=== PATIENT | male | born 1940 | race Caucasian/White ===

== ENCOUNTER 2016-07-28 18:02 | Emergency (ER) | payer OTHER ==
--- NOTE | 2016-07-28 22:51 | ED NURSING NOTES ---
Clinical Report - Nurses [facility] [address] [place] [place] [address] 07/28/2016 18:06 Patient: JORGE SAMUELS TRIAGE Triage time 20:57 Jul 28 2016. --20:58 Clementina Amaral R.N. 20:57 07/28/16. BP: 163/95. HR: 104. RR: 28. O2 saturation: 96%. Temp: 98.5 F. Pain level now: 11/16. --20:58 Clementina Amaral R.N. Acuity: LEVEL 3. Chief Complaint: (flu symptoms for 1 week). 21:03 07/28/16. --21:03 Clementina Amaral R.N. 21:03 07/28/16. HR: 68. RR: 24. --21:03 Clementina Amaral R.N. Weight: 115.6 kg stated. Height/Length: 69 inches Per Patient. BMI: 37.7. --20:19 Clementina Amaral R.N. Medications HCTZ. --20:59 Clementina Amaral R.N. Atenolol Oral. --21:00 Clementina Amaral R.N. Simvastatin Oral. --21:00 Clementina Amaral R.N. Allopurinol Oral. --21:00 Clementina Amaral R.N. Aspirin Oral. --21:00 Clementina Amaral R.N. Lansoprazole Oral. --21:00 Clementina Amaral R.N. Combivent. --21:00 Clementina Amaral R.N. Combivent Respimat Inhalation. Respa-BR Oral. --21:00 Clementina Amaral R.N. Advair Diskus Inhalation. --21:01 Clementina Amaral R.N. Vitamin D3. --21:01 Clementina Amaral R.N. Magnesium. --21:01 Clementina Amaral R.N. Meloxicam Oral. --21:01 Clementina Amaral R.N. Allergies No Known Drug Allergy. --20:59 Clementina Amaral R.N. Medication/allergy information source: the patient. --21:03 Clementina Amaral R.N. History Onset. (7 days). He has had a cough productive of moderate amounts of yellow sputum. He has had difficulty breathing. No fever, weakness or skin rash. Denies muscle aches. Treatment PITCH GATHERER: None. PAST MEDICAL HX: Immunizations: has received tetanus within 5 years; seasonal influenza. SOCIAL HX: Never smoker. No alcohol use or drug use. No infectious disease exposure. ABUSE ASSESSMENT: No report of abuse. SELF HARM ASSESSMENT: A self harm assessment was performed. The patient answered "no" to the question "Have you recently felt down, depressed, or hopeless?", "Have you noticed less interest or pleasure in doing things?", "Do you have thoughts of harming or killing yourself?", "Are you here because you tried to hurt yourself?", "Have you ever tried to hurt yourself before today?", "Have you recently had thoughts about harming or killing others?" and "Do you have any dangerous items in your possession?". FALL RISK ASSESSMENT: Fall risk assessment completed. No fall risk identified. NUTRITIONAL RISK ASSESSMENT: The nutritional risk assessment revealed no deficiencies. FUNCTIONAL ASSESSMENT: Functional assessment: no impairments noted. LEARNING NEEDS ASSESSMENT: The learning needs assessment revealed no barriers. SKIN INTEGRITY ASSESSMENT: Skin integrity risk assessment completed. No skin integrity risk identified. --21:03 Clementina Amaral R.N. PROBLEMS: Hypertension. Hypercholesterolemia. Heart Disease. COPD - Chronic Obstructive Pulmonary Disease. --21:02 Clementina Amaral R.N. ADDITIONAL SURGERIES: Esophageal Dilatation. PARTIAL THYROIDECTOMY. --21:02 Clementina Amaral R.N. Interventions ID band on patient. --21:03 Clementina Amaral R.N. PHYSICAL ASSESSMENT 21:21 07/28/16. Ambulatory to room. GENERAL / NEURO / PSYCH: Alert. Oriented X 4. HEENT: Pupils equal, round and reactive to light. No facial asymmetry noted. No facial weakness. No pharyngeal erythema. No sinus tenderness present. Mucous membranes are pink. RESPIRATORY: Mild respiratory distress. The patient can speak in full sentences. Cough productive of moderate amounts of yellow sputum. Decreased breath sounds. Expiratory wheezes present (scattered). Rhonchi present in the left lung base. CVS: Capillary refill less than 2 seconds. Pulses within normal limits. GI / : Abdomen soft. SKIN: Skin intact. Skin is warm and dry. Normal skin turgor. --21:21 Clementina Amaral R.N. NURSING PROGRESS NOTES 21:00 07/28/16. The initial plan of care for this patient includes an assessment with efforts to address the presence of pain; impairment of the cardiovascular and respiratory system. This plan of care was discussed with the patient. Pulse oximeter and NIBP monitor placed on patient; manager cardiac cath- Lead II; monitor alarms on. Patient gowned. Reassurance given to the patient. Patient ID band checked for patient name and birthdate: patient confirmed. Flu swab obtained by RN via nasal swab. Labeled in the presence of the patient. Patient identifiers checked. Call light placed in reach. Side rails up x 1. Bed placed in lowest position. Brakes of bed on. Patient ready for evaluation. --21:20 Clementina Amaral R.N. 21:10 07/28/2016 Site #1 started via IV in the right wrist with an 18g angiocath, with aseptic technique and good blood return; one attempt. Blood drawn: rainbow set. Labeled in the presence of the patient and sent to the lab. Saline lock flushed with 10 mL saline. --21:20 Clementina Amaral R.N. 21:58 07/28/16. BP: 158/96. HR: 120. RR: 18. O2 saturation: 94%. Pain level now 08/19. --21:58 Clementina Amaral R.N. 22:06 07/28/16. BP: 158/96. HR: 122. RR: 22. O2 saturation: 93%. Temp: 99.5 F. --22:07 Clementina Amaral R.N. Cardiac rhythm: atrial fibrillation. equipment monitor phototypesetting placed on patient; manager cardiac cath- Lead II; monitor alarms on. ( EKG ordered.). --22:07 Clementina Amaral R.N. 22:19. EKG was performed by a tech and shown to the ED physician. --22:23 McQuoid, Natty, ER Tech1 22:48 07/28/2016 Diltiazem IVP 20 mg given over 2 minute(s) via site #1. Allergies verified and confirmed 5 rights. IV patency established. IV site checked: no pain, redness, or swelling. IV flushed thoroughly pre- and post-medication administration. IVP given by RN. --22:50 Clementina Amaral R.N. 22:52 07/28/16. CVS: Denies chest pain. ( PATIENT WITH NSTEMI, LOOKING FOR HOSPITAL WITH INTERVENTIONAL CARDIOLOGY. PT AWARE THAT HE WILL BE TRANSFERRED). --22:52 Clementina Amaral R.N. 22:52 07/28/16. BP: 142/70. HR: 118. RR: 18. O2 saturation: 94%. Pain level now 0/10. --22:52 Clementina Amaral R.N. 22:53 07/28/16. Oxygen administered by nasal cannula. --22:53 Clementina Amaral R.N. 23:28 07/28/2016 Metoprolol (Metoprolol Tartrate) IVP 5 mg given over 1 minute(s) via site #1. IV patency established. IV site checked: no pain, redness, or swelling. IV flushed thoroughly pre- and post-medication administration. IVP given by RN. --23:35 Clementina Amaral R.N. 23:28 07/28/2016 NITROGLYCERIN PASTE Topical Paste 1 inch. Applied to the right upper arm. Allergies verified and confirmed 5 rights. --23:36 Clementina Amaral R.N. 23:29 07/28/2016 Aspirin PO Tablets 324 mg given. Allergies verified and confirmed 5 rights. --23:36 Clementina Amaral R.N. 23:32 07/28/2016 Zofran (Ondansetron HCl) IVP 4 mg given over 1 minute(s) via site #1. Allergies verified and confirmed 5 rights. IV patency established. IV site checked: no pain, redness, or swelling. IV flushed thoroughly pre- and post-medication administration. IVP given by RN. --23:37 Clementina Amaral R.N. 23:48 07/28/2016 Heparin IVP 5000 unit given over 1 minute(s) via site #1. Allergies verified and confirmed 5 rights. IV patency established. IV site checked: no pain, redness, or swelling. IV flushed thoroughly pre- and post-medication administration. IVP given by RN. --23:55 Clementina Amaral R.N. 23:49 07/28/2016 Started 10692 unit of Heparin ACS Protocol (Heparin Sodium Flush) Drip IV in bag #1 500 mL; at 10 unit/kg/hr over 8 hour(s) via site #1 via IV pump. Allergies verified and confirmed 5 rights. IV patency established. IV site checked: no pain, redness, or swelling. IV flushed thoroughly pre- and post-medication administration. --23:57 Clementina Amaral R.N. 23:50 07/28/2016 Heparin ACS Protocol Drip IV Co-signature: dosage, concentration and rate verified. --00:00 Yonathan Thomason R.N. 23:54 07/28/2016 Site #2 started via IV in the right wrist with an 20g angiocath, with aseptic technique and good blood return; one attempt. Saline lock flushed with 10 mL saline (green top for repeat troponin). --23:58 Clementina Amaral R.N. Critical value relayed to ED by LAB. Troponin: 6.38. Critical value. Verified lab result and patient ID. ED physician notifed of critical value. --00:18 Luci Licea R.N. 00:19 07/29/16. Cardiac rhythm: atrial fibrillation. The patient reports no complaints and he is resting quietly. --00:19 Clementina Amaral R.N. 00:19 07/29/16. BP: 151/71. HR: 122. RR: 18. O2 saturation: 94%. Pain level now 0/10. --00:19 Clementina Amaral R.N. 00:50 07/29/2016 Started bag #1 1000 mL IV Fluids IV NS (Saline); bolus of 500 mL over 30 minute(s) then at 125 mL/hr over 4 hour(s) via site #2 via IV pump. Allergies verified and confirmed 5 rights. IV patency established. IV site checked: no pain, redness, or swelling. IV flushed thoroughly pre- and post-medication administration. --00:51 Clementina Amaral R.N. 00:52 07/29/16. Cardiac rhythm: atrial fibrillation. GENERAL / NEURO / PSYCH: Denies headache. RESPIRATORY: Denies difficulty breathing. CVS: Denies chest pain. GI / : Denies nausea. SKIN: Skin is warm and dry. --00:52 Clementina Amaral R.N. 00:52 07/29/16. BP: 138/89. HR: 123. RR: 22. O2 saturation: 93%. Pain level now 0/10. --00:52 Clementina Amaral R.N. 01:28 07/29/16. BP: 138/72. HR: 118. RR: 18. O2 saturation: 96%. Pain level now 0/10. --01:29 James Figueroa R.N. ( pt placed in chair for comfort). --01:29 James Figueroa R.N. ( Dose confirmed with MD ANGELICA wants heparin running at 1100 units per hour). --02:07 James Figueroa R.N. late entry - 00:35 Potential bed placement found at [facility]. --02:18 Natty Brady, ER Tech1 02:19 Awaiting room assignment. --02:19 McQuoid, Natty, ER Tech1 late entry - 22:40 Attempting to find bed placement for patient. No beds available at; [facility], [facility], [facility], [facility], [facility], [facility], [facility], [facility] --02:18 McQuoid, Natty, ER Tech1 23:04 Accepting physician at [facility]; Dr Brown. Pending room assignment. --02:19 McQuoid, Natty, ER Tech1 ( Family is becoming upset that pt is still in [facility] informed of plan of care. Pt is alert and oriented with no change in baseline from first assessment by this RN). --02:42 James Figueroa R.N. 02:39 07/29/16. BP: 124/62. HR: 67. RR: 18. O2 saturation: 96%. Pain level now 0/10. --02:42 James Figueroa R.N. ( Pt has converted to sinus rhythm). --02:43 James Figueroa R.N. DISPOSITION / DISCHARGE <<STRICKEN ENTRY-- Departure time: 0150. Condition at departure: unchanged. No learning barriers present. Discharge instructions provided and reviewed with the patient. Reviewed medication(s) information. Patient verbalized understanding. Written instructions provided in Kinyarwanda. The patient was discharged by the physician. He was discharged home and accompanied by survey instrument operator. ( Pt ambulated on discharge steady on her feet pt verbalized understanding of discharge instructions and follow up care.). --01:56 James Figueroa R.N. --END STRIKE>> Charted On Wrong Patient --02:03 James Figueroa R.N. <<STRICKEN ENTRY-- 01:54 07/29/16. BP: 143/85. HR: 83. RR: 20. O2 saturation: 97%. Temp: 98.8 F. Pain level now 0/10. --01:56 James Figueroa R.N. --END STRIKE>> Charted on wrong patient. --02:01 James Figueroa R.N. Report was given via a phone call. Report included patient's care, treatment, medications, reviewed medication reconcilliation, and condition (including any recent changes or anticipated changes). All questions were answered. Report was acknowledged. (report given to MANAV knapp). --03:31 James Figueroa R.N. Condition at departure: stable. Transferred to [facility]. ( Pt to Room 273, Pt belongings with pt, clothing). FALL RISK ASSESSMENT: Fall risk assessment completed. No fall risk identified. --03:32 James Figueroa R.N. 03:33 07/29/16. HR: 66. RR: 18. O2 saturation: 95%. --03:34 James Figueroa R.N. 03:53 07/29/16. BP: 126/64. HR: 71. O2 saturation: 94%. --03:53 James Figueroa R.N. Departure time: 0410. ( Pt out in stretcher, pt verbalized understanding of care transport verbalized understanding of report.). --04:16 James Figueroa R.N. 04:15 07/29/16. BP: 131/67. HR: 71. RR: 18. O2 saturation: 96%. Temp: 98.2 F. Pain level now 09/16. --04:16 James Figueroa R.N. Locked/Released at 07/29/2016 5:57 by James Figueroa R.N.
--- NOTE | 2016-07-28 22:51 | ED CLINICAL REPORT ---
Clinical Report - Physicians/Mid Levels [facility] [address] [place] [address] 07/28/2016 18:06 Patient: JORGE SAMUELS Time Seen: 20:59. Arrived- By private vehicle. Historian- patient. HISTORY OF PRESENT ILLNESS Chief Complaint: COUGH. This started about 1 week ago and is still present. It was gradual in onset and has been constant and waxing/waning. The illness is described as moderate. The patient has had a cough, mild difficulty breathing, fever and muscle aches. He has had moderate amounts of thick, yellow, green, brown sputum. No chest discomfort or pain. Additional history - The patient has had contact with a sick spouse with confirmed type A "flu". They have had similar symptoms. Similar symptoms previously: None. REVIEW OF SYSTEMS The patient has had mild joint pain (his who fell several days ago. He helped her to get upand since that time has had a mild ache in the right shoulder), involving the right shoulder. All systems otherwise negative, except as recorded above. PAST HISTORY Problems: Heart Disease. Hypertension. Hypercholesterolemia. COPD - Chronic Obstructive Pulmonary Disease. Additional Surgeries: Esophageal Dilatation. PARTIAL THYROIDECTOMY. Medications: Meloxicam Oral. Magnesium. Vitamin D3. Advair Diskus Inhalation. Combivent Respimat Inhalation. Respa-BR Oral. Combivent. Lansoprazole Oral. Aspirin Oral. Allopurinol Oral. Simvastatin Oral. Atenolol Oral. HCTZ. Allergies: No Known Drug Allergy. SOCIAL HISTORY Former smoker, end date 1967. FAMILY HISTORY Denies family medical history. ADDITIONAL NOTES The nursing notes have been reviewed. PHYSICAL EXAM Vital Signs: 07/28/2016 20:57 BP: 163/95. HR: 104. RR: 28. O2 saturation: 96%. Temp: 98.5 F. Pain level now: 5/10. Have been reviewed. Appearance: Alert. Eyes: Pupils equal, round and reactive to light. ENT: Ears normal. Nose normal. Pharynx normal. Uvula midline. Neck: Normal inspection. Neck supple. No JVD, lymphadenopathy or carotid bruit. CVS: Abnormal rhythm, which is tachycardic and irregularly irregular. Respiratory: No respiratory distress. Abdomen: Soft and nontender. No organomegaly. Back: Normal inspection. Skin: Skin warm and dry. Normal skin color. Normal skin turgor. Extremities: Extremities exhibit normal ROM. No calf tenderness. No lower extremity edema. LABS, X-RAYS, AND EKG EKG: Rate: 127. Atrial fibrillation. ST depression in lead V3, V4, V5 and V6. The study has been independently viewed by me. Chest X-ray: (IMPRESSION: 1. Mild bibasilar atelectasis versus scarring.). The X-rays were interpreted by the radiologist and contemporaneously by me. Laboratory Tests: Troponin-I: (MONIQUE: 07/29/2016 00:00) ( MsgRcvd 07/29/2016 00:17) Final results Test Result Flag Units (Reference) TROPONIN I 6.38 H ng/mL (0.00-1.5) CRITICAL RESULTS CALLEDCalled to [place] 07/29/16 0017Were 2 patient identifiers used? YWas the result read back? YTROPONIN REFERENCE RANGE:<0.1 NEGATIVE0.1-1.5 INDETERMINANT>1.5 POSITIVE CBC w Diff: (MONIQUE: 07/28/2016 21:10) ( HigRcvd 07/28/2016 21:53) Final results Test Result Flag Units (Reference) WHITE BLOOD COUNT 9.1 K/uL (4.5-11.5) RED BLOOD COUNT 5.53 M/uL (4.50-5.90) HEMOGLOBIN 14.6 gm/dL (13.5-17.5) HEMATOCRIT 45.0 % (41.0-53.0) MEAN CELL VOLUME 81 fL (80-100) MEAN CORPUSCULAR HGB 26 pg (26-34) MEAN CORPUSCULAR HGB CONC 32 g/dL (31-37) RED CELL DISTRIBUTION WIDTH 15.2 H % (11.6-14.8) PLATELET COUNT 251 K/uL (150-400) NEUTROPHIL % 87.8 H % (50-75) LYMPH % 4.0 L % (25-40) MONO % 6.9 % (3-14) EOSINOPHIL % 0.9 % (0-4) BASOPHIL % 0.4 % (0-2) PT with INR: (MONIQUE: 07/28/2016 20:45) ( [facility] 07/28/2016 22:35) Final results Test Result Flag Units (Reference) INR 1.0 (0.8-1.2) Low Intensity Therapy: INR 1.5-2.0 PT range 18.5-23.1Mod.Intensity Therapy: INR 2.0-3.0 PT range 23.1-31.5High Intensity Therapy: INR 2.5-3.5 PT range 27.4-35.5High Intensity Therapy 2: INR 3.0-4.0 PT range 31.5-39.3 APTT 26 SECONDS (24-34) TSH: (MONIQUE: 07/28/2016 20:45) ( [facility] 07/28/2016 23:10) Final results Test Result Flag Units (Reference) THYROID STIMULATING HORMONE 2.438 uIU/mL (0.30-3.74) BNP: (MONIQUE: 07/28/2016 21:10) ( [facility] 07/28/2016 22:38) Final results Test Result Flag Units (Reference) B-TYPE NATRIURETIC PEPTIDE 330 H pg/ml (5-100) Lipase: (MONIQUE: 07/28/2016 21:10) ( [facility] 07/28/2016 22:47) Final results Test Result Flag Units (Reference) LIPASE 96 U/L (73-393) AMYLASE 35 U/L (25-115) CPK 252 U/L (24-260) TROPONIN I 2.05 H ng/mL (0.00-1.5) CRITICAL RESULTS CALLEDCalled to [place] 07/28/16 2247Were 2 patient identifiers used? YWas the result read back? YTROPONIN REFERENCE RANGE:<0.1 NEGATIVE0.1-1.5 INDETERMINANT>1.5 POSITIVE [id number]: (MONIQUE: 07/28/2016 21:10) ( MsgRcvd 07/28/2016 23:13) Final results Test Result Flag Units (Reference) PROCALCITONIN <0.5 ng/mL (0-0.5) PCT Concentration: Interpretation : Risk/option for action PCT <=0.5 ng/mL : Systemic : Low risk forinfection(sepsis): progression to severeis not likely. : systemic infection.Local bacterial : CAUTION-PCT levelsinfection is : below 0.5 ng/mL do notpossible. : exclude an infection,because localizedinfections (withoutsystemic signs) may beassociated with suchlow levels. If PCT ismeasured very earlyafter a bacterialchallenge (usually <6hours), these valuesmay still be low. Inthis case PCT shouldbe re-assessed 6-24hours later. PCT >0.5 and : Systemic infection: Moderate risk for<= 2 ng/mL : (sepsis) is : progression to severepossible, but : systemic infection.other conditions : The patient should beare known to : closely monitoredelevate PCT. : both clinically andby re-assessing PCTwithin 6-24 hours. PCT > 2 ng/mL : Systemic infection: High risk for(sepsis) is likely: progression to severeunless other : systemic infection.causes are known. : PCT >= 10 ng/mL : Important systemic: High likelihood ofinflammatory : severe sepsis orresponse, almost : septic shock.exclusively due to:severe bacterial :sepsis or septic :shock. : CMP: (MONIQUE: 07/28/2016 21:10) ( [facility] 07/28/2016 22:15) Final results Test Result Flag Units (Reference) GLUCOSE 114 H mg/dL (70-110) BUN 21 H mg/dL (7-18) CREATININE 1.4 H mg/dL (0.6-1.3) Estimated GFR 52.51 mL/min Estimated GFR- >60 mL/min Note: Persistent reduction over 3 months in eGFR<60 mL/min/1.73 m2 defines CKD. Patients with eGFR values>=60 mL/min/1.73 m2 may also have CKD if evidence ofpersistent proteinuria. Additional information may be foundat www.kidney.org. SODIUM 140 mmol/L (136-145) POTASSIUM 3.5 mmol/L (3.5-5.1) CHLORIDE 99 mmol/L (98-107) CARBON DIOXIDE 29 mmol/L (21-32) CALCIUM 9.3 mg/dL (8.5-10.1) TOTAL PROTEIN 7.5 g/dL (6.4-8.2) ALBUMIN 3.9 g/dL (3.3-5.0) BILIRUBIN, TOTAL 0.5 mg/dL (0.0-1.0) ALKALINE PHOSPHATASE 76 U/L (46-116) AST (SGOT) 25 U/L (15-37) ALT (SGPT) 28 U/L (12-78) Rapid Influenza Screen: (MONIQUE: 07/28/2016 21:10) ( [facility] [place] 22:01) Final results SPECIMEN DESCRIPTION: CHICKEN RAISER Test Result Flag Units (Reference) RAPID INFLUENZA SCREEN DATE: 07/28/16 INFLUENZA A: NEGATIVE SCREEN FOR INFLUENZA A INFLUENZA B: NEGATIVE SCREEN FOR INFLUENZA B . PROGRESS AND PROCEDURES Discussed case with hospitalist, (Kevin at [facility]). Reviewed test results and need for additional work-up. Agreed upon treatment plan. Health care provider will see patient in hospital. Additional history sought (from patient). I reviewed the patient's results of the patient's tests with him. He had initially denied any chest pain or discomfort however when I explainedthe results he didn't know into these had some chest pressure over the past 2 days - "very mild". Old medical records ordered. Old records unavailable. Disposition: Transferred. [facility]. CLINICAL IMPRESSION New onset atrial fibrillation. Acute myocardial infarction with elevated markers, EKG changes and no ST elevation (NSTEMI). (Electronically signed by Jean Fam MD 07/29/2016 4:46)
--- NOTE | 2016-07-28 22:51 | ED ORDER SUMMARY ---
..... Patient: JORGE SAMUELS OrderSheet [facility] VisitID: [id number] [address] [place] [address] 76y, M Registration Date/Time: 07/28/2016 ORDER SHEET Weight: 115.6 kg (stated) Allergies: No Known Drug Allergy GENERAL ORDERS: Rapid Influenza Screen (Nasal Pharyngeal) (CHEESEMAKING LABORER) Urgent (21:03 07/28/2016 Anthony DOMINGUEZ) (Ack 21:05 LTapper) (21:36 EInderbitzen R.N.) Chest 2V Urgent (21:30 07/28/2016 Anthony DOMINGUEZ) (Ack 21:33 LTapper) (21:41 MCampbell) CBC w Diff Urgent (21:31 07/28/2016 Anthony DOMINGUEZ) (Ack 21:33 LTapper) (21:36 EInderbitzen R.N.) CMP Urgent (21:07/28/2016 Anthony DOMINGUEZ) (Ack 21:33 LTapper) (21:36 EInderbitzen R.N.) PCT (Procalcitonin) Urgent (22:01 07/28/2016 Anthony DOMINGUEZ) (Ack 22:03 AMcQuoid ER Tech1) (23:35 EInderbitzen R.N.) CPK Urgent (22:07 07/28/2016 Anthony DOMINGUEZ) (Ack 22:13 LTapper) (22:35 AMcQuoid ER Tech1) Troponin-I Urgent (22:07 07/28/2016 Anthony DOMINGUEZ) (Ack 22:13 LTapper) (22:35 AMcQuoid ER Tech1) Amylase Urgent (22:07 07/28/2016 Anthony DOMINGUEZ) (Ack 22:13 LTapper) (22:35 AMcQuoid ER Tech1) Lipase Urgent (22:07 07/28/2016 Anthony DOMINGUEZ) (Ack 22:13 LTapper) (22:35 AMcQuoid ER Tech1) BNP Urgent (22:07 07/28/2016 Anthony DOMINGUEZ) (Ack 22:14 LTapper) (22:35 AMcQuoid ER Tech1) EKG - ER Stat (22:07 07/28/2016 Anthony DOMINGUEZ) (Ack 22:14 LTapper) (22:23 AMcQuoid ER Tech1) Pulse oximeter (22:07 07/28/2016 Anthony DOMINGUEZ) (22:08 EInderbitzen R.N.) Oxygen (2 L/min) (NC) (22:07 07/28/2016 Anthony DOMINGUEZ) (22:08 EInderbitzen R.N.) PT with INR Urgent (22:22 07/28/2016 Anthony DOMINGUEZ) (22:35 AMcQuoid ER Tech1) PTT Urgent (22:22 07/28/2016 Anthony DOMINGUEZ) (22:35 AMcQuoid ER Tech1) TSH Urgent (22:22 07/28/2016 Anthony DOMINGUEZ) (22:35 AMcQuoid ER Tech1) Oxygen (2 L/min) (NC) (23:16 07/28/2016 Anthony DOMINGUEZ) (23:35 EInderbitzen R.N.) Troponin-I Urgent (23:59 07/28/2016 EInderbitzen R.N. verbal order read back to Anthony DOMINGUEZ) (Ack 0:07 AMcQuoid ER Tech1) (1:20 EInderbitzen R.N.) MEDICATION ORDERS: NitroGLYCERIN Paste Topical 1 in. (NOW, to CW) (23:18 07/28/2016 Anthony DOMINGUEZ) (23:36 EInderbitzen R.N.) Aspirin PO 325 mg (Do not crush or chew, NOW) (23:18 07/28/2016 Anthony DOMIGNUEZ) (23:36 EInderbitzen R.N.) IV FLUIDS: IV Saline Lock (22:07 07/28/2016 Anthony DOMINGUEZ) (22:08 EInderbitzen R.N.) Diltiazem IV 20 mg (HIGH ALERT MEDICATION, NOW) (22:34 07/28/2016 Anthony DOMINGUEZ) (22:50 EInderbitzen R.N.) Metoprolol IV 5 mg (HIGH ALERT MEDICATION) (23:17 07/28/2016 Anthony DOMINGUEZ) (23:35 EInderbitzen R.N.) Heparin IV : initial bolus 5,000 units, then 10 units/kg/hr for 4h (NOW); Urgent (23:23 07/28/2016 Anthony DOMINGUEZ) (23:55 EInderbitzen R.N.) Zofran IV 4 mg (NOW) (23:30 07/28/2016 Anthony DOMINGUEZ) (23:37 EInderbitzen R.N.) IV NS : initial bolus 500 mL (1000 mL/hr), then 125 mL/hr for 4h (NOW); Urgent (00:39 07/29/2016 Anthony DOMINGUEZ) (0:51 EInderbitzen R.N.) ORDER SHEET NOTES: [Electronically signed by Jean Fam MD (04:46 07/29/2016)] [Electronically signed by James Figueroa R.N. (05:57 07/29/2016)] [Electronically locked/signed by James Figueroa R.N. (05:57 07/29/2016)]
--- NOTE | 2016-07-28 22:51 | ED CLINICAL REPORT ---
Clinical Report - Physicians/Mid Levels [facility] [address] [place] [address] 07/28/2016 18:06 Patient: JORGE SAMUELS Time Seen: 20:59. Arrived- By private vehicle. Historian- patient. HISTORY OF PRESENT ILLNESS Chief Complaint: COUGH. This started about 1 week ago and is still present. It was gradual in onset and has been constant and waxing/waning. The illness is described as moderate. The patient has had a cough, mild difficulty breathing, fever and muscle aches. He has had moderate amounts of thick, yellow, green, brown sputum. No chest discomfort or pain. Additional history - The patient has had contact with a sick spouse with confirmed type A "flu". They have had similar symptoms. Similar symptoms previously: None. REVIEW OF SYSTEMS The patient has had mild joint pain (his who fell several days ago. He helped her to get upand since that time has had a mild ache in the right shoulder), involving the right shoulder. All systems otherwise negative, except as recorded above. PAST HISTORY Problems: Heart Disease. Hypertension. Hypercholesterolemia. COPD - Chronic Obstructive Pulmonary Disease. Additional Surgeries: Esophageal Dilatation. PARTIAL THYROIDECTOMY. Medications: Meloxicam Oral. Magnesium. Vitamin D3. Advair Diskus Inhalation. Combivent Respimat Inhalation. Respa-BR Oral. Combivent. Lansoprazole Oral. Aspirin Oral. Allopurinol Oral. Simvastatin Oral. Atenolol Oral. HCTZ. Allergies: No Known Drug Allergy. SOCIAL HISTORY Former smoker, end date 1967. FAMILY HISTORY Denies family medical history. ADDITIONAL NOTES The nursing notes have been reviewed. PHYSICAL EXAM Vital Signs: 07/28/2016 20:57 BP: 163/95. HR: 104. RR: 28. O2 saturation: 96%. Temp: 98.5 F. Pain level now: 5/10. Have been reviewed. Appearance: Alert. Eyes: Pupils equal, round and reactive to light. ENT: Ears normal. Nose normal. Pharynx normal. Uvula midline. Neck: Normal inspection. Neck supple. No JVD, lymphadenopathy or carotid bruit. CVS: Abnormal rhythm, which is tachycardic and irregularly irregular. Respiratory: No respiratory distress. Abdomen: Soft and nontender. No organomegaly. Back: Normal inspection. Skin: Skin warm and dry. Normal skin color. Normal skin turgor. Extremities: Extremities exhibit normal ROM. No calf tenderness. No lower extremity edema. LABS, X-RAYS, AND EKG EKG: Rate: 127. Atrial fibrillation. ST depression in lead V3, V4, V5 and V6. The study has been independently viewed by me. Chest X-ray: (IMPRESSION: 1. Mild bibasilar atelectasis versus scarring.). The X-rays were interpreted by the radiologist and contemporaneously by me. Laboratory Tests: Troponin-I: (MONIQUE: 07/29/2016 00:00) ( MsgRcvd 07/29/2016 00:17) Final results Test Result Flag Units (Reference) TROPONIN I 6.38 H ng/mL (0.00-1.5) CRITICAL RESULTS CALLEDCalled to MURRAY 07/29/16 0017Were 2 patient identifiers used? YWas the result read back? YTROPONIN REFERENCE RANGE:<0.1 NEGATIVE0.1-1.5 INDETERMINANT>1.5 POSITIVE CBC w Diff: (MONIQUE: 07/28/2016 21:10) ( WagRcvd 07/28/2016 21:53) Final results Test Result Flag Units (Reference) WHITE BLOOD COUNT 9.1 K/uL (4.5-11.5) RED BLOOD COUNT 5.53 M/uL (4.50-5.90) HEMOGLOBIN 14.6 gm/dL (13.5-17.5) HEMATOCRIT 45.0 % (41.0-53.0) MEAN CELL VOLUME 81 fL (80-100) MEAN CORPUSCULAR HGB 26 pg (26-34) MEAN CORPUSCULAR HGB CONC 32 g/dL (31-37) RED CELL DISTRIBUTION WIDTH 15.2 H % (11.6-14.8) PLATELET COUNT 251 K/uL (150-400) NEUTROPHIL % 87.8 H % (50-75) LYMPH % 4.0 L % (25-40) MONO % 6.9 % (3-14) EOSINOPHIL % 0.9 % (0-4) BASOPHIL % 0.4 % (0-2) PT with INR: (MONIQUE: 07/28/2016 20:45) ( [facility] 07/28/2016 22:35) Final results Test Result Flag Units (Reference) INR 1.0 (0.8-1.2) Low Intensity Therapy: INR 1.5-2.0 PT range 18.5-23.1Mod.Intensity Therapy: INR 2.0-3.0 PT range 23.1-31.5High Intensity Therapy: INR 2.5-3.5 PT range 27.4-35.5High Intensity Therapy 2: INR 3.0-4.0 PT range 31.5-39.3 APTT 26 SECONDS (24-34) TSH: (MONIQUE: 07/28/2016 20:45) ( [facility] 07/28/2016 23:10) Final results Test Result Flag Units (Reference) THYROID STIMULATING HORMONE 2.438 uIU/mL (0.30-3.74) BNP: (MONIQUE: 07/28/2016 21:10) ( [facility] 07/28/2016 22:38) Final results Test Result Flag Units (Reference) B-TYPE NATRIURETIC PEPTIDE 330 H pg/ml (5-100) Lipase: (MONIQUE: 07/28/2016 21:10) ( [facility] 07/28/2016 22:47) Final results Test Result Flag Units (Reference) LIPASE 96 U/L (73-393) AMYLASE 35 U/L (25-115) CPK 252 U/L (24-260) TROPONIN I 2.05 H ng/mL (0.00-1.5) CRITICAL RESULTS CALLEDCalled to CONSUELO 07/28/16 2247Were 2 patient identifiers used? YWas the result read back? YTROPONIN REFERENCE RANGE:<0.1 NEGATIVE0.1-1.5 INDETERMINANT>1.5 POSITIVE [id number]: (MONIQUE: 07/28/2016 21:10) ( MsgRcvd 07/28/2016 23:13) Final results Test Result Flag Units (Reference) PROCALCITONIN <0.5 ng/mL (0-0.5) PCT Concentration: Interpretation : Risk/option for action PCT <=0.5 ng/mL : Systemic : Low risk forinfection(sepsis): progression to severeis not likely. : systemic infection.Local bacterial : CAUTION-PCT levelsinfection is : below 0.5 ng/mL do notpossible. : exclude an infection,because localizedinfections (withoutsystemic signs) may beassociated with suchlow levels. If PCT ismeasured very earlyafter a bacterialchallenge (usually <6hours), these valuesmay still be low. Inthis case PCT shouldbe re-assessed 6-24hours later. PCT >0.5 and : Systemic infection: Moderate risk for<= 2 ng/mL : (sepsis) is : progression to severepossible, but : systemic infection.other conditions : The patient should beare known to : closely monitoredelevate PCT. : both clinically andby re-assessing PCTwithin 6-24 hours. PCT > 2 ng/mL : Systemic infection: High risk for(sepsis) is likely: progression to severeunless other : systemic infection.causes are known. : PCT >= 10 ng/mL : Important systemic: High likelihood ofinflammatory : severe sepsis orresponse, almost : septic shock.exclusively due to:severe bacterial :sepsis or septic :shock. : CMP: (MONIQUE: 07/28/2016 21:10) ( [facility] 07/28/2016 22:15) Final results Test Result Flag Units (Reference) GLUCOSE 114 H mg/dL (70-110) BUN 21 H mg/dL (7-18) CREATININE 1.4 H mg/dL (0.6-1.3) Estimated GFR 52.51 mL/min Estimated GFR- >60 mL/min Note: Persistent reduction over 3 months in eGFR<60 mL/min/1.73 m2 defines CKD. Patients with eGFR values>=60 mL/min/1.73 m2 may also have CKD if evidence ofpersistent proteinuria. Additional information may be foundat www.kidney.org. SODIUM 140 mmol/L (136-145) POTASSIUM 3.5 mmol/L (3.5-5.1) CHLORIDE 99 mmol/L (98-107) CARBON DIOXIDE 29 mmol/L (21-32) CALCIUM 9.3 mg/dL (8.5-10.1) TOTAL PROTEIN 7.5 g/dL (6.4-8.2) ALBUMIN 3.9 g/dL (3.3-5.0) BILIRUBIN, TOTAL 0.5 mg/dL (0.0-1.0) ALKALINE PHOSPHATASE 76 U/L (46-116) AST (SGOT) 25 U/L (15-37) ALT (SGPT) 28 U/L (12-78) Rapid Influenza Screen: (MONIQUE: 07/28/2016 21:10) ( [facility] [place] 07/[place] 22:01) Final results SPECIMEN DESCRIPTION: ACCESS REPRESENTATIVE Test Result Flag Units (Reference) RAPID INFLUENZA SCREEN DATE: 07/28/16 INFLUENZA A: NEGATIVE SCREEN FOR INFLUENZA A INFLUENZA B: NEGATIVE SCREEN FOR INFLUENZA B . PROGRESS AND PROCEDURES Discussed case with hospitalist, (Kevin at [facility]). Reviewed test results and need for additional work-up. Agreed upon treatment plan. Health care provider will see patient in hospital. Additional history sought (from patient). I reviewed the patient's results of the patient's tests with him. He had initially denied any chest pain or discomfort however when I explainedthe results he didn't know into these had some chest pressure over the past 2 days - "very mild". Old medical records ordered. Old records unavailable. Disposition: Transferred. [facility]. CLINICAL IMPRESSION New onset atrial fibrillation. Acute myocardial infarction with elevated markers, EKG changes and no ST elevation (NSTEMI). (Electronically signed by Jean Fam MD 07/29/2016 4:46)
--- NOTE | 2016-07-28 22:51 | ED ORDER SUMMARY ---
..... Patient: JORGE SAMUELS OrderSheet [facility] VisitID: [id number] [address] [place] [address] 76y, M Registration Date/Time: 07/28/2016 ORDER SHEET Weight: 115.6 kg (stated) Allergies: No Known Drug Allergy GENERAL ORDERS: Rapid Influenza Screen (Nasal Pharyngeal) (WEB ART DIRECTOR) Urgent (21:03 07/28/2016 Anthony DOIMNGUEZ) (Ack 21:05 LTapper) (21:36 EInderbitzen R.N.) Chest 2V Urgent (21:30 07/28/2016 Anthony DOMINGUEZ) (Ack 21:33 LTapper) (21:41 MCampbell) CBC w Diff Urgent (21:31 07/28/2016 Anthony DOMINGUEZ) (Ack 21:33 LTapper) (21:36 EInderbitzen R.N.) CMP Urgent (21:07/28/2016 Anthony DOMINGUEZ) (Ack 21:33 LTapper) (21:36 EInderbitzen R.N.) PCT (Procalcitonin) Urgent (22:01 07/28/2016 Anthony DOMINGUEZ) (Ack 22:03 AMcQuoid ER Tech1) (23:35 EInderbitzen R.N.) CPK Urgent (22:07 07/28/2016 Anthony DOMINGUEZ) (Ack 22:13 LTapper) (22:35 AMcQuoid ER Tech1) Troponin-I Urgent (22:07 07/28/2016 Anthony DOMINGUEZ) (Ack 22:13 LTapper) (22:35 AMcQuoid ER Tech1) Amylase Urgent (22:07 07/28/2016 Anthony DOMINGUEZ) (Ack 22:13 LTapper) (22:35 AMcQuoid ER Tech1) Lipase Urgent (22:07 07/28/2016 Anthony DOMINGUEZ) (Ack 22:13 LTapper) (22:35 AMcQuoid ER Tech1) BNP Urgent (22:07 07/28/2016 Anthony DOMINGUEZ) (Ack 22:14 LTapper) (22:35 AMcQuoid ER Tech1) EKG - ER Stat (22:07 07/28/2016 Anthony DOMINGUEZ) (Ack 22:14 LTapper) (22:23 AMcQuoid ER Tech1) Pulse oximeter (22:07 07/28/2016 Anthony DOMINGUEZ) (22:08 EInderbitzen R.N.) Oxygen (2 L/min) (NC) (22:07 07/28/2016 Anthony DOMINGUEZ) (22:08 EInderbitzen R.N.) PT with INR Urgent (22:22 07/28/2016 Anthony DOMINGUEZ) (22:35 AMcQuoid ER Tech1) PTT Urgent (22:22 07/28/2016 Anthony DOMINGUEZ) (22:35 AMcQuoid ER Tech1) TSH Urgent (22:22 07/28/2016 Anthony DOMINGUEZ) (22:35 AMcQuoid ER Tech1) Oxygen (2 L/min) (NC) (23:16 07/28/2016 Anthony DOMINGUEZ) (23:35 EInderbitzen R.N.) Troponin-I Urgent (23:59 07/28/2016 EInderbitzen R.N. verbal order read back to Anthony DOMINGUEZ) (Ack 0:07 AMcQuoid ER Tech1) (1:20 EInderbitzen R.N.) MEDICATION ORDERS: NitroGLYCERIN Paste Topical 1 in. (NOW, to CW) (23:18 07/28/2016 Anthony DOMINGUEZ) (23:36 EInderbitzen R.N.) Aspirin PO 325 mg (Do not crush or chew, NOW) (23:18 07/28/2016 Anthony DOMINGUEZ) (23:36 EInderbitzen R.N.) IV FLUIDS: IV Saline Lock (22:07 07/28/2016 Anthony DOMINGUEZ) (22:08 EInderbitzen R.N.) Diltiazem IV 20 mg (HIGH ALERT MEDICATION, NOW) (22:34 07/28/2016 Anthony DOMINGUEZ) (22:50 EInderbitzen R.N.) Metoprolol IV 5 mg (HIGH ALERT MEDICATION) (23:17 07/28/2016 Anthony DOMINGUEZ) (23:35 EInderbitzen R.N.) Heparin IV : initial bolus 5,000 units, then 10 units/kg/hr for 4h (NOW); Urgent (23:23 07/28/2016 Anthony DOMINGUEZ) (23:55 EInderbitzen R.N.) Zofran IV 4 mg (NOW) (23:30 07/28/2016 Anthony DOMINGUEZ) (23:37 EInderbitzen R.N.) IV NS : initial bolus 500 mL (1000 mL/hr), then 125 mL/hr for 4h (NOW); Urgent (00:39 07/29/2016 Anthony DOMINGUEZ) (0:51 EInderbitzen R.N.) ORDER SHEET NOTES: [Electronically signed by Jean Fam MD (04:46 07/29/2016)] [Electronically signed by James Figueroa R.N. (05:57 07/29/2016)] [Electronically locked/signed by James Figueroa R.N. (05:57 07/29/2016)]
--- NOTE | 2016-07-28 22:51 | ED NURSING NOTES ---
Clinical Report - Nurses [facility] [address] [place] [address] 07/28/2016 18:06 Patient: JORGE SAMUELS TRIAGE Triage time 20:57 Jul 28 2016. --20:58 Clementina Amaral R.N. 20:57 07/28/16. BP: 163/95. HR: 104. RR: 28. O2 saturation: 96%. Temp: 98.5 F. Pain level now: 11/16. --20:58 Clementina Amaral R.N. Acuity: LEVEL 3. Chief Complaint: (flu symptoms for 1 week). 21:03 07/28/16. --21:03 Clementina Amaral R.N. 21:03 07/28/16. HR: 68. RR: 24. --21:03 Clementina Amaral R.N. Weight: 115.6 kg stated. Height/Length: 69 inches Per Patient. BMI: 37.7. --20:19 Clementina Amaral R.N. Medications HCTZ. --20:59 Clementina Amaral R.N. Atenolol Oral. --21:00 Clementina Amaral R.N. Simvastatin Oral. --21:00 Clementina Amaral R.N. Allopurinol Oral. --21:00 Celmentina Amaral R.N. Aspirin Oral. --21:00 Clementina Amaral R.N. Lansoprazole Oral. --21:00 Clementina Amaral R.N. Combivent. --21:00 Clementina Amaral R.N. Combivent Respimat Inhalation. Respa-BR Oral. --21:00 Clementina Amaral R.N. Advair Diskus Inhalation. --21:01 Clementina Amaral R.N. Vitamin D3. --21:01 Clementina Amaral R.N. Magnesium. --21:01 Clementina Amaral R.N. Meloxicam Oral. --21:01 Clementina Amaral R.N. Allergies No Known Drug Allergy. --20:59 Clementina Amaral R.N. Medication/allergy information source: the patient. --21:03 Clementina Amaral R.N. History Onset. (7 days). He has had a cough productive of moderate amounts of yellow sputum. He has had difficulty breathing. No fever, weakness or skin rash. Denies muscle aches. Treatment RUBBER ENGRAVER: None. PAST MEDICAL HX: Immunizations: has received tetanus within 5 years; seasonal influenza. SOCIAL HX: Never smoker. No alcohol use or drug use. No infectious disease exposure. ABUSE ASSESSMENT: No report of abuse. SELF HARM ASSESSMENT: A self harm assessment was performed. The patient answered "no" to the question "Have you recently felt down, depressed, or hopeless?", "Have you noticed less interest or pleasure in doing things?", "Do you have thoughts of harming or killing yourself?", "Are you here because you tried to hurt yourself?", "Have you ever tried to hurt yourself before today?", "Have you recently had thoughts about harming or killing others?" and "Do you have any dangerous items in your possession?". FALL RISK ASSESSMENT: Fall risk assessment completed. No fall risk identified. NUTRITIONAL RISK ASSESSMENT: The nutritional risk assessment revealed no deficiencies. FUNCTIONAL ASSESSMENT: Functional assessment: no impairments noted. LEARNING NEEDS ASSESSMENT: The learning needs assessment revealed no barriers. SKIN INTEGRITY ASSESSMENT: Skin integrity risk assessment completed. No skin integrity risk identified. --21:03 Clementina Amaral R.N. PROBLEMS: Hypertension. Hypercholesterolemia. Heart Disease. COPD - Chronic Obstructive Pulmonary Disease. --21:02 Clementina Amaral R.N. ADDITIONAL SURGERIES: Esophageal Dilatation. PARTIAL THYROIDECTOMY. --21:02 Clementina Amaral R.N. Interventions ID band on patient. --21:03 Clementina Amaral R.N. PHYSICAL ASSESSMENT 21:21 07/28/16. Ambulatory to room. GENERAL / NEURO / PSYCH: Alert. Oriented X 4. HEENT: Pupils equal, round and reactive to light. No facial asymmetry noted. No facial weakness. No pharyngeal erythema. No sinus tenderness present. Mucous membranes are pink. RESPIRATORY: Mild respiratory distress. The patient can speak in full sentences. Cough productive of moderate amounts of yellow sputum. Decreased breath sounds. Expiratory wheezes present (scattered). Rhonchi present in the left lung base. CVS: Capillary refill less than 2 seconds. Pulses within normal limits. GI / : Abdomen soft. SKIN: Skin intact. Skin is warm and dry. Normal skin turgor. --21:21 Clementina Amaral R.N. NURSING PROGRESS NOTES 21:00 07/28/16. The initial plan of care for this patient includes an assessment with efforts to address the presence of pain; impairment of the cardiovascular and respiratory system. This plan of care was discussed with the patient. Pulse oximeter and NIBP monitor placed on patient; inorganic chemistry professor- Lead II; monitor alarms on. Patient gowned. Reassurance given to the patient. Patient ID band checked for patient name and birthdate: patient confirmed. Flu swab obtained by RN via nasal swab. Labeled in the presence of the patient. Patient identifiers checked. Call light placed in reach. Side rails up x 1. Bed placed in lowest position. Brakes of bed on. Patient ready for evaluation. --21:20 Clementina Amaral R.N. 21:10 07/28/2016 Site #1 started via IV in the right wrist with an 18g angiocath, with aseptic technique and good blood return; one attempt. Blood drawn: rainbow set. Labeled in the presence of the patient and sent to the lab. Saline lock flushed with 10 mL saline. --21:20 Clementina Amaral R.N. 21:58 07/28/16. BP: 158/96. HR: 120. RR: 18. O2 saturation: 94%. Pain level now 08/19. --21:58 Clementina Amaral R.N. 22:06 07/28/16. BP: 158/96. HR: 122. RR: 22. O2 saturation: 93%. Temp: 99.5 F. --22:07 Clementina Amaral R.N. Cardiac rhythm: atrial fibrillation. drying can worker placed on patient; inorganic chemistry professor- Lead II; monitor alarms on. ( EKG ordered.). --22:07 Clementina Amaral R.N. 22:19. EKG was performed by a tech and shown to the ED physician. --22:23 McQuoid, Natty, ER Tech1 22:48 07/28/2016 Diltiazem IVP 20 mg given over 2 minute(s) via site #1. Allergies verified and confirmed 5 rights. IV patency established. IV site checked: no pain, redness, or swelling. IV flushed thoroughly pre- and post-medication administration. IVP given by RN. --22:50 Clementina Amaral R.N. 22:52 07/28/16. CVS: Denies chest pain. ( PATIENT WITH NSTEMI, LOOKING FOR HOSPITAL WITH INTERVENTIONAL CARDIOLOGY. PT AWARE THAT HE WILL BE TRANSFERRED). --22:52 Clementina Amaral R.N. 22:52 07/28/16. BP: 142/70. HR: 118. RR: 18. O2 saturation: 94%. Pain level now 0/10. --22:52 Clementina Amaral R.N. 22:53 07/28/16. Oxygen administered by nasal cannula. --22:53 Clementina Amaral R.N. 23:28 07/28/2016 Metoprolol (Metoprolol Tartrate) IVP 5 mg given over 1 minute(s) via site #1. IV patency established. IV site checked: no pain, redness, or swelling. IV flushed thoroughly pre- and post-medication administration. IVP given by RN. --23:35 Clementina Amaral R.N. 23:28 07/28/2016 NITROGLYCERIN PASTE Topical Paste 1 inch. Applied to the right upper arm. Allergies verified and confirmed 5 rights. --23:36 Clementina Amaral R.N. 23:29 07/28/2016 Aspirin PO Tablets 324 mg given. Allergies verified and confirmed 5 rights. --23:36 Clementina Amaral R.N. 23:32 07/28/2016 Zofran (Ondansetron HCl) IVP 4 mg given over 1 minute(s) via site #1. Allergies verified and confirmed 5 rights. IV patency established. IV site checked: no pain, redness, or swelling. IV flushed thoroughly pre- and post-medication administration. IVP given by RN. --23:37 Clementina Amaral R.N. 23:48 07/28/2016 Heparin IVP 5000 unit given over 1 minute(s) via site #1. Allergies verified and confirmed 5 rights. IV patency established. IV site checked: no pain, redness, or swelling. IV flushed thoroughly pre- and post-medication administration. IVP given by RN. --23:55 Clementina Amaral R.N. 23:49 07/28/2016 Started 09340 unit of Heparin ACS Protocol (Heparin Sodium Flush) Drip IV in bag #1 500 mL; at 10 unit/kg/hr over 8 hour(s) via site #1 via IV pump. Allergies verified and confirmed 5 rights. IV patency established. IV site checked: no pain, redness, or swelling. IV flushed thoroughly pre- and post-medication administration. --23:57 Clementina Amaral R.N. 23:50 07/28/2016 Heparin ACS Protocol Drip IV Co-signature: dosage, concentration and rate verified. --00:00 Yonathan Thomason R.N. 23:54 07/28/2016 Site #2 started via IV in the right wrist with an 20g angiocath, with aseptic technique and good blood return; one attempt. Saline lock flushed with 10 mL saline (green top for repeat troponin). --23:58 Clementina Amaral R.N. Critical value relayed to ED by LAB. Troponin: 6.38. Critical value. Verified lab result and patient ID. ED physician notifed of critical value. --00:18 Luci Licea R.N. 00:19 07/29/16. Cardiac rhythm: atrial fibrillation. The patient reports no complaints and he is resting quietly. --00:19 Clementina Amaral R.N. 00:19 07/29/16. BP: 151/71. HR: 122. RR: 18. O2 saturation: 94%. Pain level now 0/10. --00:19 Clementina Amaral R.N. 00:50 07/29/2016 Started bag #1 1000 mL IV Fluids IV NS (Saline); bolus of 500 mL over 30 minute(s) then at 125 mL/hr over 4 hour(s) via site #2 via IV pump. Allergies verified and confirmed 5 rights. IV patency established. IV site checked: no pain, redness, or swelling. IV flushed thoroughly pre- and post-medication administration. --00:51 Clementina Amaral R.N. 00:52 07/29/16. Cardiac rhythm: atrial fibrillation. GENERAL / NEURO / PSYCH: Denies headache. RESPIRATORY: Denies difficulty breathing. CVS: Denies chest pain. GI / : Denies nausea. SKIN: Skin is warm and dry. --00:52 Clementina Amaral R.N. 00:52 07/29/16. BP: 138/89. HR: 123. RR: 22. O2 saturation: 93%. Pain level now 0/10. --00:52 Clementina Amaral R.N. 01:28 07/29/16. BP: 138/72. HR: 118. RR: 18. O2 saturation: 96%. Pain level now 0/10. --01:29 James Figueroa R.N. ( pt placed in chair for comfort). --01:29 James Figueroa R.N. ( Dose confirmed with MD ANGELICA wants heparin running at 1100 units per hour). --02:07 James Figueora R.N. late entry - 00:35 Potential bed placement found at [facility]. --02:18 Natty Brady, ER Tech1 02:19 Awaiting room assignment. --02:19 McQuoid, Natty, ER Tech1 late entry - 22:40 Attempting to find bed placement for patient. No beds available at; [facility], [facility], [facility], [facility], [facility], [facility], [facility], [facility] --02:18 McQuoid, Natty, ER Tech1 23:04 Accepting physician at [facility]; Dr Brown. Pending room assignment. --02:19 McQuoid, Natty, ER Tech1 ( Family is becoming upset that pt is still in [facility] ed informed of plan of care. Pt is alert and oriented with no change in baseline from first assessment by this RN). --02:42 James Figueroa R.N. 02:39 07/29/16. BP: 124/62. HR: 67. RR: 18. O2 saturation: 96%. Pain level now 0/10. --02:42 James Figueroa R.N. ( Pt has converted to sinus rhythm). --02:43 James Figueroa R.N. DISPOSITION / DISCHARGE <<STRICKEN ENTRY-- Departure time: 0150. Condition at departure: unchanged. No learning barriers present. Discharge instructions provided and reviewed with the patient. Reviewed medication(s) information. Patient verbalized understanding. Written instructions provided in Latvian. The patient was discharged by the physician. He was discharged home and accompanied by yard hand. ( Pt ambulated on discharge steady on her feet pt verbalized understanding of discharge instructions and follow up care.). --01:56 James Figueroa R.N. --END STRIKE>> Charted On Wrong Patient --02:03 James Figueroa R.N. <<STRICKEN ENTRY-- 01:54 07/29/16. BP: 143/85. HR: 83. RR: 20. O2 saturation: 97%. Temp: 98.8 F. Pain level now 0/10. --01:56 James Figueroa R.N. --END STRIKE>> Charted on wrong patient. --02:01 James Figueroa R.N. Report was given via a phone call. Report included patient's care, treatment, medications, reviewed medication reconcilliation, and condition (including any recent changes or anticipated changes). All questions were answered. Report was acknowledged. (report given to MANAV knapp). --03:31 James Figueroa R.N. Condition at departure: stable. Transferred to [facility]. ( Pt to Room 273, Pt belongings with pt, clothing). FALL RISK ASSESSMENT: Fall risk assessment completed. No fall risk identified. --03:32 James Figueroa R.N. 03:33 07/29/16. HR: 66. RR: 18. O2 saturation: 95%. --03:34 James Figueroa R.N. 03:53 07/29/16. BP: 126/64. HR: 71. O2 saturation: 94%. --03:53 James Figueroa R.N. Departure time: 0410. ( Pt out in stretcher, pt verbalized understanding of care transport verbalized understanding of report.). --04:16 James Figueroa R.N. 04:15 07/29/16. BP: 131/67. HR: 71. RR: 18. O2 saturation: 96%. Temp: 98.2 F. Pain level now 09/16. --04:16 James Figueroa R.N. Locked/Released at 07/29/2016 5:57 by James Figueroa R.N.
--- NOTE | 2016-07-28 23:08 | DIAGNOSTIC IMAGING REPORT ---
PROCEDURE: XR CHEST 2 VIEW INDICATION: Cough x, initial encounter TECHNIQUE: PA and lateral view. COMPARISON: None. FINDINGS: Mild bibasilar atelectasis versus scarring. Cardiovascular structures are normal. Moderate degenerative changes of the spine. IMPRESSION: 1. Mild bibasilar atelectasis versus scarring.
--- NOTE | 2016-07-29 05:57 | ED MED RECONCILIATION SUMMARY ---
Patient: JORGE SAMUELS Medication Reconciliation Report [facility] VisitID: [id number] [address] [place] [address] 76y, M Registration Date/Time: 07/28/2016 Weight: 115.6 kg Height/Length: 69 in. BMI: 37.7 ALLERGIES: No Known Drug Allergy The patient's Home Medications are listed below: THE FOLLOWING MEDICATIONS NEED TO BE RECONCILED: Advair Diskus Inhalation Allopurinol Oral Aspirin Oral Atenolol Oral Combivent Combivent Respimat Inhalation HCTZ Lansoprazole Oral Magnesium Meloxicam Oral Respa-BR Oral Simvastatin Oral Vitamin D3 The source(s) of the original Home Medication information: patient The following Medications were given to the patient in the Emergency Department: Diltiazem [IVP] IVP 20 mg, administered: 07/28/2016 10:48:00 PM Metoprolol [IVP] IVP 5 mg, administered: 07/28/2016 11:28:00 PM NITROGLYCERIN PASTE [TOPICAL] Topical 1 in., administered: 07/28/2016 11:28:00 PM Aspirin [PO] PO 324 mg, administered: 07/28/2016 11:29:00 PM Zofran [IVP] IVP 4 mg, administered: 07/28/2016 11:32:00 PM Heparin [IVP] IVP 5000 unit, administered: 07/28/2016 11:48:00 PM Heparin ACS Protocol [Drip IV] Drip IV bolus 0, then 81808 unit 10 unit/kg/hr, administered: 07/28/2016 11:49:00 PM IV NS IV Fluids bolus 500 mL over 30 minute(s), then 125 mL/hr, administered: 07/29/2016 12:50:00 AM The following Medications were prescribed to the patient: None.
--- NOTE | 2016-07-29 05:57 | ED DISCHARGE INSTRUCTIONS ---
Patient: JORGE SAMUELS General Instructions [facility] VisitID: [id number] [address] [place] [address] 76y, M Registration Date/Time: 07/28/2016 New onset atrial fibrillation. Acute myocardial infarction with elevated markers, EKG changes and no ST elevation (NSTEMI). (Electronically signed by Jean Fam MD 07/29/2016 4:46)
--- NOTE | 2016-07-29 05:57 | ED MAR SUMMARY ---
..... Medication Administration Record [facility] [address] [place] [address] Patient: JORGE SAMUELS Visit ID: [id number] 76y, M Weight: 115.6 kg Height/Length: 69 in BMI: 37.7 ALLERGIES: No Known Drug Allergy Given 22:48 07/28/2016 Clementina Amaral R.N. Medication Administered: DILTIAZEM [IVP], Dose: 20 mg IVP over 2 minute(s), Site: #1 right wrist. Medication Ordered: Diltiazem IV 20 mg (HIGH ALERT MEDICATION, NOW). Given :07/28/2016 Clementina Amaral R.N. Medication Administered: METOPROLOL [IVP] (METOPROLOL TARTRATE), Dose: 5 mg IVP over 1 minute(s), Site: #1 right wrist. Medication Ordered: Metoprolol IV 5 mg (HIGH ALERT MEDICATION). Given :07/28/2016 Clementina Amaral R.N. Medication Administered: NITROGLYCERIN PASTE [TOPICAL], Dose: 1 in. Paste Topical. Medication Ordered: NitroGLYCERIN Paste Topical 1 in. (NOW, to ). Given 23:07/28/2016 Clementina Amaral R.N. Medication Administered: ASPIRIN [PO], Dose: 324 mg Tablets PO. Medication Ordered: Aspirin PO 325 mg (Do not crush or chew, NOW). Given 23:07/28/2016 Clementina Amaral R.N. Medication Administered: ZOFRAN [IVP] (ONDANSETRON HCL), Dose: 4 mg IVP over 1 minute(s), Site: #1 right wrist. Medication Ordered: Zofran IV 4 mg (NOW). Given :07/28/2016 Clementina Amaral R.N. Medication Administered: HEPARIN [IVP], Dose: 5000 unit IVP over 1 minute(s), Site: #1 right wrist. Medication Ordered: Heparin IV : initial bolus 5,000 units, then 10 units/kg/hr for 4h (NOW); Urgent. Start 23:49 07/28/2016 Clementina Amaral R.N. Medication Administered: HEPARIN ACS PROTOCOL [DRIP IV] (HEPARIN SODIUM FLUSH), Dose: 63297 unit Drip IV over 8 hour(s), Rate: 10 unit/kg/hr, Dispensed: 500 mL bag, Site: #1 right wrist. Medication Ordered: Heparin IV : initial bolus 5,000 units, then 10 units/kg/hr for 4h (NOW); Urgent. Start 00:50 07/29/2016 Clementina Amaral R.N. Medication Administered: IV NS (SALINE), Dose: IV Fluids over 4 hour(s), Rate: 125 mL/hr, Bolus: 500 mL over 30 minute(s), Dispensed: 1000 mL bag, Site: #2 right wrist. Medication Ordered: IV NS : initial bolus 500 mL (1000 mL/hr), then 125 mL/hr for 4h (NOW); Urgent.
--- NOTE | 2016-07-29 05:57 | ED MED RECONCILIATION SUMMARY ---
Patient: JORGE SAMUELS Medication Reconciliation Report [facility] VisitID: [id number] [address] [place] [address] 76y, M Registration Date/Time: 07/28/2016 Weight: 115.6 kg Height/Length: 69 in. BMI: 37.7 ALLERGIES: No Known Drug Allergy The patient's Home Medications are listed below: THE FOLLOWING MEDICATIONS NEED TO BE RECONCILED: Advair Diskus Inhalation Allopurinol Oral Aspirin Oral Atenolol Oral Combivent Combivent Respimat Inhalation HCTZ Lansoprazole Oral Magnesium Meloxicam Oral Respa-BR Oral Simvastatin Oral Vitamin D3 The source(s) of the original Home Medication information: patient The following Medications were given to the patient in the Emergency Department: Diltiazem [IVP] IVP 20 mg, administered: 07/28/2016 10:48:00 PM Metoprolol [IVP] IVP 5 mg, administered: 07/28/2016 11:28:00 PM NITROGLYCERIN PASTE [TOPICAL] Topical 1 in., administered: 07/28/2016 11:28:00 PM Aspirin [PO] PO 324 mg, administered: 07/28/2016 11:29:00 PM Zofran [IVP] IVP 4 mg, administered: 07/28/2016 11:32:00 PM Heparin [IVP] IVP 5000 unit, administered: 07/28/2016 11:48:00 PM Heparin ACS Protocol [Drip IV] Drip IV bolus 0, then 74616 unit 10 unit/kg/hr, administered: 07/28/2016 11:49:00 PM IV NS IV Fluids bolus 500 mL over 30 minute(s), then 125 mL/hr, administered: 07/29/2016 12:50:00 AM The following Medications were prescribed to the patient: None.
--- NOTE | 2016-07-29 05:57 | ED MAR SUMMARY ---
..... Medication Administration Record [facility] [address] [place] [address] Patient: JORGE SAMUELS Visit ID: [id number] 76y, M Weight: 115.6 kg Height/Length: 69 in BMI: 37.7 ALLERGIES: No Known Drug Allergy Given 22:48 07/28/2016 Clementina Amaral R.N. Medication Administered: DILTIAZEM [IVP], Dose: 20 mg IVP over 2 minute(s), Site: #1 right wrist. Medication Ordered: Diltiazem IV 20 mg (HIGH ALERT MEDICATION, NOW). Given :07/28/2016 Clementina Amaral R.N. Medication Administered: METOPROLOL [IVP] (METOPROLOL TARTRATE), Dose: 5 mg IVP over 1 minute(s), Site: #1 right wrist. Medication Ordered: Metoprolol IV 5 mg (HIGH ALERT MEDICATION). Given :07/28/2016 Clementina Amaral R.N. Medication Administered: NITROGLYCERIN PASTE [TOPICAL], Dose: 1 in. Paste Topical. Medication Ordered: NitroGLYCERIN Paste Topical 1 in. (NOW, to ). Given 23:07/28/2016 Clementina Amaral R.N. Medication Administered: ASPIRIN [PO], Dose: 324 mg Tablets PO. Medication Ordered: Aspirin PO 325 mg (Do not crush or chew, NOW). Given 23:07/28/2016 Clementina Amaral R.N. Medication Administered: ZOFRAN [IVP] (ONDANSETRON HCL), Dose: 4 mg IVP over 1 minute(s), Site: #1 right wrist. Medication Ordered: Zofran IV 4 mg (NOW). Given :07/28/2016 Clementina Amaral R.N. Medication Administered: HEPARIN [IVP], Dose: 5000 unit IVP over 1 minute(s), Site: #1 right wrist. Medication Ordered: Heparin IV : initial bolus 5,000 units, then 10 units/kg/hr for 4h (NOW); Urgent. Start 23:49 07/28/2016 Clementina Amaral R.N. Medication Administered: HEPARIN ACS PROTOCOL [DRIP IV] (HEPARIN SODIUM FLUSH), Dose: 62829 unit Drip IV over 8 hour(s), Rate: 10 unit/kg/hr, Dispensed: 500 mL bag, Site: #1 right wrist. Medication Ordered: Heparin IV : initial bolus 5,000 units, then 10 units/kg/hr for 4h (NOW); Urgent. Start 00:50 07/29/2016 Clementina Amaral R.N. Medication Administered: IV NS (SALINE), Dose: IV Fluids over 4 hour(s), Rate: 125 mL/hr, Bolus: 500 mL over 30 minute(s), Dispensed: 1000 mL bag, Site: #2 right wrist. Medication Ordered: IV NS : initial bolus 500 mL (1000 mL/hr), then 125 mL/hr for 4h (NOW); Urgent.
--- NOTE | 2016-07-29 05:57 | ED DISCHARGE INSTRUCTIONS ---
Patient: JORGE SAMUELS General Instructions [facility] VisitID: [id number] [address] [place] [address] 76y, M Registration Date/Time: 07/28/2016 New onset atrial fibrillation. Acute myocardial infarction with elevated markers, EKG changes and no ST elevation (NSTEMI). (Electronically signed by Jean Fam MD 07/29/2016 4:46)
== END 2016-07-29 04:10 | disposition short-term general hospital (02) ==
LOC: ED SRH 18:02
DX: I21.4 Non-ST elevation (NSTEMI) myocardial infarction (principal); I48.91 Unspecified atrial fibrillation; I10 Essential (primary) hypertension; J44.9 Chronic obstructive pulmonary disease, unspecified; E78.00 Pure hypercholesterolemia, unspecified; Z79.82 Long term (current) use of aspirin; Z79.899 Other long term (current) drug therapy; Z87.891 Personal history of nicotine dependence
CPT/HCPCS: 90100; 90616; 91320; 91400; 92235; 92530; 92610; 93004; 93140; 94001; 94060; 95059